=== PATIENT | female | born 1990 | race Caucasian/White ===

== ENCOUNTER 2017-01-23 09:01 | Emergency (ER) | payer OTHER ==
[~2017-01-23] VITALS: Ht 160 cm; Wt 60.0 kg
[~2017-01-23 09:01] MED LIST: ANAPROX DS550 MG OR; BENTYL20 MG OR; COMBIVENT IN; CONCEPT OB PO; NONE AT THIS TIME; ORTHO TRI-CY OR; PRENATAL1 TAB OR; PROAIR HFA IN; SEROQUEL50 MG OR; WELLBUTRIN SR150 MG OR; ZANTAC150 M1 PO; ZOFRAN ODT8 MG OR; ZOLOFT50 MG PO
[2017-01-23 09:43] LABS: HEMATOCRIT 34.9 % (37.0-47.0); HEMOGLOBIN 11.9 g/dl (12.0-16.0); IMMATURE GRANULOCYTES 0.5 % (0.0-1.0); MEAN CELL VOLUME 93.1 fL CALC (80.0-100.0); MEAN CORPUSCULAR HGB 31.7 pG CALC (26.0-32.0); MEAN CORPUSCULAR HGB CONC 34.1 g/L CALC (32.0-36.0); NEUT# 7.53 thou/uL (2.00-7.15); RED BLOOD COUNT 3.75 mill/uL (4.20-5.60); RED CELL DISTRI WIDTH 13.4 % (11.5-15.5)
[2017-01-23 09:44] LABS: URINE BILIRUBIN - DIPSTICK NEGATIVE (NEGATIVE); URINE BLOOD DIPSTICK SMALL (NEGATIVE); URINE COLOR YELLOW; URINE GLUCOSE - DIPSTICK NEGATIVE (NEGATIVE); URINE KETONE NEGATIVE (NEGATIVE); URINE LEUK ESTERASE TRACE (NEGATIVE); URINE NITRITE - DIPSTICK NEGATIVE (Negative); URINE PROTEIN - DIPSTICK NEGATIVE (NEG-TRACE); URINE UROBILINOGEN - DIPSTICK 0.2 E.U./dL (0.2)
[2017-01-23 09:49] LABS: URINE CLARITY CLEAR
[2017-01-23 09:58] LABS: URINE SQUAMOUS EPITHELIAL CELL FEW EPI/hpf (0-FEW)
[2017-01-23 10:00] LABS: ALBUMIN 3.8 g/dL (3.2-5.0); ALKALINE PHOSPHATASE 59 u/l (38-126); ANION GAP 11 (6-22 (CALC)); BILIRUBIN, TOTAL 0.4 mg/dL (0.0-1.4); BUN 10 mg/dL (7-17); BUN/CREATININE RATIO 18 (12-20 (CALC)); CALCIUM 8.7 mg/dL (8.4-10.2); CARBON DIOXIDE 24 mmol/l (22-30); CHLORIDE 108 mmol/l (95-108); CREATININE 0.6 mg/dL (0.5-1.0); GFR > 60 ML/MIN (>=60 (CALC)); GFR FOR AFR.AMER. > 60 ML/MIN (>=60 (CALC)); GLUCOSE 80 mg/dL (65-105); SGOT/AST 22 u/l (14-36); SGPT/ALT 22 u/l (9-52); SODIUM 140 mmol/l (137-146); TOTAL PROTEIN 6.7 g/dL (6.3-8.2)
[2017-01-23 10:13] LABS: MYOGLOBIN 19 ng/mL (0 - 62)
[2017-01-23] MEDS ORDERED: MACRODANTIN100 MG PO (11:07)
[2017-01-23] MEDS ORDERED: ZOFRAN ODT4 MG PO (11:07)
[2017-01-23 11:09] VITALS: BP 132/67
== END 2017-01-23 11:30 | disposition home or self-care (01) | DRG 781 ==
LOC: ED 09:01
PROVIDERS: Emergency Medicine
DX: O23.92 Unspecified genitourinary tract infection in pregnancy, second trimester (principal); R42 Dizziness and giddiness; Z3A.20 20 weeks gestation of pregnancy

== ENCOUNTER 2017-08-26 22:47 | Emergency (ER) | payer OTHER ==
[~2017-08-26] VITALS: Ht 160 cm; Wt 49.0 kg
[~2017-08-26 22:47] MED LIST changes: +MACRODANTIN100 MG PO; +ZOFRAN ODT4 MG PO
[2017-08-27] MEDS ORDERED: KEFLEX500 MG PO ×2 (00:43→01:02)
[2017-08-27 01:00] VITALS: BP 124/80
[2017-08-27] MEDS ORDERED: IBUPROFEN600 MG PO (01:03)
== END 2017-08-27 01:10 | disposition home or self-care (01) ==
LOC: ED 22:47
DX: L02.415 Cutaneous abscess of right lower limb (principal); F17.210 Nicotine dependence, cigarettes, uncomplicated

== ENCOUNTER 2017-12-24 07:45 | Emergency (ER) | payer SELFPAY ==
[~2017-12-24] VITALS: Ht 160 cm; Wt 53.0 kg
[~2017-12-24 07:45] MED LIST changes: +IBUPROFEN600 MG PO; +KEFLEX500 MG PO
[2017-12-24] MEDS ORDERED: WELLBUTRIN SR150 MG PO (07:54)
[2017-12-24 08:39] LABS: HEMATOCRIT 37.9 % (37.0-47.0); HEMOGLOBIN 12.5 g/dl (12.0-16.0); IMMATURE GRANULOCYTES 0.5 % (0.0-5.0); MEAN CELL VOLUME 88.8 fL CALC (80.0-100.0); MEAN CORPUSCULAR HGB 29.3 pG CALC (26.0-32.0); NEUT# 12.4 thou/uL (2.00-7.15); RED BLOOD COUNT 4.27 mill/uL (4.20-5.60); RED CELL DISTRI WIDTH 14.7 % (11.5-15.5)
[2017-12-24 08:42] LABS: INFLUENZA A NONE DETECTED (NONE DETECT); INFLUENZA B NONE DETECTED (NONE DETECT)
[2017-12-24] MEDS ORDERED: CLARITHROMYC500 MG PO (08:58)
[2017-12-24 09:07] VITALS: BP 128/85
== END 2017-12-24 09:12 | disposition home or self-care (01) | DRG 203 ==
LOC: ED 07:45
PROVIDERS: Family Medicine
DX: J20.9 Acute bronchitis, unspecified (principal); F17.210 Nicotine dependence, cigarettes, uncomplicated

== ENCOUNTER 2018-01-15 01:46 | Emergency (ER) | payer OTHER ==
[~2018-01-15] VITALS: Ht 160 cm; Wt 52.2 kg
[~2018-01-15 01:46] MED LIST changes: +CLARITHROMYC500 MG PO; +WELLBUTRIN SR150 MG PO
[2018-01-15] MEDS ORDERED: PRILOSEC20 MG/CAP PO (02:00)
[2018-01-15] MEDS ORDERED: ACETAMINOPHEN500 M1 PO (02:41)
[2018-01-15] MEDS ORDERED: VOLTAREN - GENE75 MG PO (02:41)
[2018-01-15] MEDS ORDERED: FLEXERIL5 M1 PO (02:41)
[2018-01-15 03:04] VITALS: BP 120/63
== END 2018-01-15 02:56 | disposition home or self-care (01) | DRG 552 ==
LOC: ED 01:46
DX: S16.1XXA Strain of muscle, fascia and tendon at neck level, initial encounter (principal); M54.2 Cervicalgia; V48.5XXA Car driver injured in noncollision transport accident in traffic accident, initial encounter; Y92.414 Local residential or business street as the place of occurrence of the external cause

== ENCOUNTER 2019-03-18 | Emergency (ER) | payer BC ==
[~2019-03-18] MED LIST changes: +ACETAMINOPHEN500 M1 PO; +FLEXERIL5 M1 PO; +PRILOSEC20 MG/CAP PO; +VOLTAREN - GENE75 MG PO
[2019-03-18 14:31] LABS: HEMATOCRIT 39.5 % (37.0-47.0); IMMATURE GRANULOCYTES 0.4 % (0.0-5.0); MEAN CORPUSCULAR HGB 29.3 pG CALC (26.0-32.0); MEAN CORPUSCULAR HGB CONC 32.9 g/L CALC (32.0-36.0); NEUT# 8.73 thou/uL (2.00-7.15); RED BLOOD COUNT 4.44 mill/uL (4.20-5.60)
[2019-03-18 14:41] LABS: ANION GAP 14 (6-22 (CALC)); BUN 16 mg/dL (7-17); BUN/CREATININE RATIO 23 (12-20 (CALC)); CARBON DIOXIDE 24 mmol/l (22-30); CHLORIDE 104 mmol/l (95-108); CREATININE 0.7 mg/dL (0.5-1.0); GFR > 60 ML/MIN (>=60 (CALC)); GFR FOR AFR.AMER. > 60 ML/MIN (>=60 (CALC)); POTASSIUM 4.6 mmol/l (3.5-5.1); SODIUM 138 mmol/l (137-146)
[2019-03-18 16:01] LABS: URINE BILIRUBIN - DIPSTICK NEGATIVE (NEGATIVE); URINE BLOOD DIPSTICK TRACE-LYSED (NEGATIVE); URINE COLOR YELLOW; URINE GLUCOSE - DIPSTICK NEGATIVE (NEGATIVE); URINE KETONE NEGATIVE (NEGATIVE); URINE LEUK ESTERASE NEGATIVE (NEGATIVE); URINE NITRITE - DIPSTICK NEGATIVE (Negative); URINE PH 7.5 (4.5-8.0); URINE PROTEIN - DIPSTICK NEGATIVE (NEG-TRACE); URINE SPECIFIC GRAVITY 1.015; URINE UROBILINOGEN - DIPSTICK 0.2 E.U./dL (0.2)
== END 2019-03-18 16:10 | disposition home or self-care (01) | DRG 761 ==
PROVIDERS: Family Medicine
DX: N93.8 Other specified abnormal uterine and vaginal bleeding (principal); F17.210 Nicotine dependence, cigarettes, uncomplicated

== ENCOUNTER 2020-12-18 07:39 | Day surgery (SDC) | payer BC ==
[~2020-12-18] VITALS: Ht 160 cm; Wt 53.5 kg
[~2020-12-18 07:39] MED LIST changes: +PROAIR RES108 MCG/AC IN; +XULANE 150-35 M1 DIS TD
[2020-12-18 10:32] VITALS: BP 126/83
== END 2020-12-18 10:24 | disposition home or self-care (01) | DRG 745 ==
LOC: ORM 07:39
PROVIDERS: ATTEND Obstetrics & Gynecology
PROC: 0UBC7ZX Excision of Cervix, Via Natural or Artificial Opening, Diagnostic (ICD-10-PCS; principal; 2020-12-18)
DX: D06.0 Carcinoma in situ of endocervix (principal); F31.9 Bipolar disorder, unspecified; F41.9 Anxiety disorder, unspecified; F17.200 Nicotine dependence, unspecified, uncomplicated

== ENCOUNTER 2022-07-26 10:18 | Emergency (ER) | payer SELFPAY ==
[~2022-07-26] VITALS: Ht 160 cm; Wt 51.4 kg
[2022-07-26 10:27] VITALS: BP 117/85
[2022-07-26 10:30] VITALS: BP 120/83
[2022-07-26 10:45] VITALS: BP 112/72
[2022-07-26 11:00] VITALS: BP 109/70
[2022-07-26 11:02] VITALS: BP 109/70
[2022-07-26] MEDS ORDERED: BENZONATATE200 MG PO (11:05)
[2022-07-26] MEDS ORDERED: ZPAK PO (11:05)
== END 2022-07-26 11:11 | disposition home or self-care (01) | DRG 153 ==
LOC: ED 10:18
DX: J06.9 Acute upper respiratory infection, unspecified (principal); J45.909 Unspecified asthma, uncomplicated; F17.210 Nicotine dependence, cigarettes, uncomplicated; Z20.822 Contact with and (suspected) exposure to COVID-19

== ENCOUNTER 2022-09-12 22:26 | Emergency (ER) | payer SELFPAY ==
[~2022-09-12] VITALS: Ht 160 cm; Wt 50.8 kg
[~2022-09-12 22:26] MED LIST changes: +BENZONATATE200 MG PO; +ZPAK PO
[2022-09-12 22:57] VITALS: BP 112/72
[2022-09-12 23:00] VITALS: BP 108/65
[2022-09-12 23:29] LABS: BASO% 0.4 % (0-3); EOS% 1.9 % (0-8); HEMATOCRIT 39.3 % (37.0-47.0); HEMOGLOBIN 13.1 g/dl (12.0-16.0); LYMPH% 5.6 % (15-41); MEAN CORPUSCULAR HGB 30.7 pG CALC (26.0-32.0); MEAN CORPUSCULAR HGB CONC 33.3 g/dL CAL (32.0-36.0); MONO% 8.4 % (2-13); NEUT# 5.67 thou/uL (2.00-7.15); NEUT% 83.7 % (42-76); RED BLOOD COUNT 4.27 mill/uL (4.20-5.60); RED CELL DISTRI WIDTH 13.2 % (11.5-15.5)
[2022-09-12 23:36] LABS: URINE BILIRUBIN - DIPSTICK NEGATIVE (NEGATIVE); URINE COLOR YELLOW; URINE GLUCOSE - DIPSTICK NEGATIVE (NEGATIVE); URINE KETONE Negative (NEGATIVE); URINE PH 8.5 (4.5-8.0); URINE PROTEIN - DIPSTICK NEGATIVE (NEG-TRACE); URINE SPECIFIC GRAVITY 1.015
[2022-09-12 23:37] LABS: URINE BLOOD DIPSTICK NEGATIVE (NEGATIVE); URINE LEUK ESTERASE NEGATIVE (NEGATIVE); URINE NITRITE - DIPSTICK NEGATIVE (Negative)
[2022-09-12 23:46] LABS: ALBUMIN 4.4 g/dL (3.2-5.0); ALKALINE PHOSPHATASE 64 u/l (38-126); ANION GAP 10 (6-22 (CALC)); BILIRUBIN, TOTAL 0.5 mg/dL (0.02-1.3); BUN 10 mg/dL (7-17); BUN/CREATININE RATIO 12 (12-20 (CALC)); CARBON DIOXIDE 25 mmol/l (22-30); CHLORIDE 103 mmol/l (95-108); CREATININE 0.8 mg/dL (0.5-1.0); GFR FOR AFR.AMER. > 60 ML/MIN (>=60 (CALC)); GFR OTHER RACES > 60 ML/MIN (>=60 (CALC)); POTASSIUM 3.8 mmol/l (3.5-5.1); SGOT/AST 27 u/l (14-36); SODIUM 134 mmol/l (137-146); TOTAL PROTEIN 7.4 g/dL (6.3-8.2)
[2022-09-12] MEDS ORDERED: PAXLOVID PO (23:53)
[2022-09-13 00:40] VITALS: BP 108/65
== END 2022-09-13 00:42 | disposition home or self-care (01) | DRG 179 ==
LOC: ED 22:26
PROVIDERS: Emergency Medicine
DX: U07.1 COVID-19 (principal); R52 Pain, unspecified; R50.9 Fever, unspecified; J45.909 Unspecified asthma, uncomplicated; F17.210 Nicotine dependence, cigarettes, uncomplicated

== ENCOUNTER 2023-09-09 18:27 | Emergency (ER) | payer BC ==
[~2023-09-09] VITALS: Ht 160 cm; Wt 50.8 kg
[~2023-09-09 18:27] MED LIST changes: +PAXLOVID PO
[2023-09-09] MEDS ORDERED: ONDANSETRON HCl 4 MG/2 ML SDV IV ONE (18:50)
[2023-09-09] MEDS ORDERED: SODIUM CHLORIDE 0.9% 1,000 ML IV ONE (18:50)
[2023-09-09] MEDS ORDERED: KETOROLAC TROMETHAMINE 15 MG/ML SDV IV ONE (18:50)
[2023-09-09] MEDS ORDERED: OMEPRAZOLE DR40 MG PO (18:54)
[2023-09-09 19:38] LABS: BASO% 0.4 % (0-3); EOS% 2.9 % (0-8); HEMATOCRIT 41.2 % (37.0-47.0); HEMOGLOBIN 14.1 g/dl (12.0-16.0); IMMATURE GRANULOCYTES 0.2 % (0.0-5.0); MEAN CORPUSCULAR HGB 31.8 pG CALC (26.0-32.0); MEAN CORPUSCULAR HGB CONC 34.2 g/dL CAL (32.0-36.0); MONO% 7.5 % (2-13); NEUT# 6.93 thou/uL (2.00-7.15); RED BLOOD COUNT 4.43 mill/uL (4.20-5.60); RED CELL DISTRI WIDTH 13.6 % (11.5-15.5)
[2023-09-09 19:47] LABS: URINE BLOOD DIPSTICK Moderate (NEGATIVE); URINE GLUCOSE - DIPSTICK Negative (NEGATIVE); URINE KETONE Trace mg/dL (NEGATIVE); URINE LEUK ESTERASE Negative (NEGATIVE); URINE PROTEIN - DIPSTICK 30 mg/dL (NEG-TRACE); URINE SPECIFIC GRAVITY 1.025
[2023-09-09 19:48] LABS: URINE COLOR Yellow; URINE NITRITE - DIPSTICK Positive (Negative)
[2023-09-09 19:51] LABS: ALBUMIN 4.1 g/dL (3.2-5.0); BILIRUBIN, TOTAL 0.6 mg/dL (0.02-1.3); CREATININE 0.7 mg/dL (0.5-1.0); POTASSIUM 3.8 mmol/l (3.5-5.1)
[2023-09-09 19:55] LABS: URINE BACTERIA MODERATE hpf; URINE SQUAMOUS EPITHELIAL CELL MANY EPI/hpf (0-FEW)
[2023-09-10] MEDS ORDERED: ZOFRAN4 MG/TAB PO (00:18)
[2023-09-10 00:44] VITALS: BP 141/95
--- NOTE | 2023-09-11 15:50 | NUR ---
Attempted to contact pt and next of kin () x3 regarding urine culture results. No answer, left voicemail mesages to return call to Pharmacy Department.
== END 2023-09-10 00:44 | disposition home or self-care (01) | DRG 694 ==
LOC: ED 18:27
PROVIDERS: Family Medicine
DX: N13.30 Unspecified hydronephrosis (principal); J45.909 Unspecified asthma, uncomplicated; F17.210 Nicotine dependence, cigarettes, uncomplicated; Z85.41 Personal history of malignant neoplasm of cervix uteri
CPT/HCPCS: Q9967